=== PATIENT | male | born 1980 | race Caucasian/White ===

== ENCOUNTER 2021-03-21 16:55 | Emergency (ER) | payer OTHER ==
[2021-03-21] MEDS ORDERED: BACLOFEN 10MG T10 MG PO (20:49)
[2021-03-21] MEDS ORDERED: NAPROXEN500 MG PO (20:49)
== END 2021-03-21 21:08 | disposition home or self-care (01) ==
LOC: FER 16:55
DX: M54.41 Lumbago with sciatica, right side (principal); M54.42 Lumbago with sciatica, left side; F17.210 Nicotine dependence, cigarettes, uncomplicated
CPT/HCPCS: 72110; J1100; J1885

== ENCOUNTER 2021-04-29 20:28 | Emergency (ER) | payer OTHER ==
[~2021-04-29 20:28] MED LIST: BACLOFEN 10MG T10 MG PO; NAPROXEN500 MG PO
[2021-04-29] MEDS ORDERED: ZANAFLEX2 MG PO (23:56)
== END 2021-04-30 00:30 | disposition home or self-care (01) ==
LOC: FER 20:28
DX: M54.50 Low back pain, unspecified (principal); F17.200 Nicotine dependence, unspecified, uncomplicated
CPT/HCPCS: 99283; J1885

== ENCOUNTER 2021-11-22 17:33 | Emergency (ER) | payer OTHER ==
[~2021-11-22 17:33] MED LIST changes: +ZANAFLEX2 MG PO
[2021-11-22 19:44] LABS: BASOPHIL 0.3 % (0-2); EOSINOPHIL 2.6 % (0-5); HCT 50.6 % (42.0-52.0); HGB 17.5 g/dl (13.2-18.0); LYMPHOCYTE 37.9 % (15-48); MCH 31.6 pg (25.0-31.0); MCHC 34.6 g/dL (32.0-36.0); MCV 91.3 fL (78.0-100.0); MONOCYTE 8.9 % (0-12); MPV 9.5 fL (6.0-9.5); NEUTROPHIL 50.1 % (41-80); NRBC 0; PLT 314 K/uL (150-400); RBC 5.54 M/uL (4.70-6.00); RDW 14.1 % (11.5-14.0); WBC 9.9 K/uL (4.0-10.5)
[2021-11-22 19:47] LABS: BILIRUBIN 1+ mg/dL (NEGATIVE); BLOOD NEGATIVE Ery/uL (NEGATIVE); CLARITY CLEAR (CLEAR); COLOR YELLOW (YELLOW); GLUCOSE (U) NORMAL (NORMAL); LEUKOCYTES NEGATIVE Leu/uL (NEGATIVE); NITRITE NEGATIVE (NEGATIVE); PROTEIN 2+ mg/dL (NEGATIVE); SPECIFIC GRAVITY >=1.030 (1.001-1.030); UROBILINOGEN 0.2 mg/dL (0.2-1.0)
[2021-11-22 20:01] LABS: URINARY RBC RARE; URINARY WBC RARE
[2021-11-22 20:02] LABS: BACTERIA TRACE; MUCOUS TRACE
[2021-11-22 20:13] LABS: BILIRUBIN - TOTAL 0.5 mg/dL (0.2-1.0); BUN/CREAT RATIO (CALC) 17.3 RATIO; CREATININE 1.04 mg/dL (0.67-1.17); GLOBULIN (CALCULATION) 4.4 g/dL; POTASSIUM 3.6 mmol/L (3.5-5.1); TOTAL PROTEIN 8.4 g/dL (6.4-8.2)
[2021-11-22 20:15] LABS: LACTIC ACID 0.5 mmol/L (0.4-1.9)
[2021-11-22] MEDS ORDERED: IMODIUM2 MG PO (20:56)
== END 2021-11-22 21:13 | disposition home or self-care (01) ==
LOC: FER 17:33
PROVIDERS: Physician Assistant
DX: R19.7 Diarrhea, unspecified (principal); F17.210 Nicotine dependence, cigarettes, uncomplicated; Z28.310 Unvaccinated for COVID-19
CPT/HCPCS: 36415; 80053; 81001; 83605; 83690; 84145; 85025; J7030